=== PATIENT | male | born 1990 | race Caucasian/White ===

== ENCOUNTER 2021-06-20 17:17 | Emergency (ER) | payer BC, SELFPAY ==
[2021-06-20 17:31] VITALS: BP 157/91; PULSE 81; RESP 18; TEMP 36.8; O2SAT 97; BMI 30.4
--- NOTE | 2021-06-20 17:36 | W.ED.DENTAL ---
HPI - Dental/Oral General: Chief complaint: Dental/Oral Stated complaint: Oral infection Time Seen by Provider: 06/20/21 17:36 History of Present Illness: 30-year-old male patient comes in today with complaints of right upper jaw discomfort and facial swelling. Patient has been on clindamycin 300 mg 3 times a day since Saturday evening. Patient reports taken 3 doses. Patient appears nontoxic. Patient appears in mild to moderate pain. Teeth map: 1. Dental pain 2. Gingival swelling Review of Systems General: Reports: 10 or more systems reviewed and unremarkable except in HPI and below ENMT: Reports: dental pain; Denies: throat pain Card: Denies: chest pain Resp: Denies: dyspnea GI: Denies: nausea or vomiting Musc: Denies: neck pain Skin/Breast: Denies: rash Physical Exam Const: COMMON NORMALS: alert HENMT: TEETH & GINGIVA: Yes caries and Yes gingiva abnormal tender THROAT: posterior oropharynx normal Neck/C-Spine: COMMON NORMALS: full ROM Resp: COMMON NORMALS: normal respiratory effort Extremity: COMMON NORMALS: full ROM Neuro: SENSORIUM/ORIENTATION: Yes alert Skin: COMMON NORMALS: no rashes or lesions noted GENERAL SKIN EXAM: no rashes or lesions noted Course Vital Signs: Vital signs: Vital Signs Temperature 98.2 F 06/20/21 17:31 Pulse Rate 81 06/20/21 17:31 Respiratory Rate 18 06/20/21 17:31 Blood Pressure 157/91 06/20/21 17:31 Pulse Oximetry 97 06/20/21 17:31 MDM - Dental/Oral Medical Decision Making 30-year-old male patient comes in today with right upper jaw discomfort. On exam we note a gingival abscess up to the the second molar of the right upper jaw. There is multiple caries in the mouth. Patient also has retained brackets from braces. Patient reports he has not seen a dentist in years and has retained the brackets from his braces from when he was an adolescent. Posterior pharynx is normal. Differential diagnosis dental caries, dental pain, dental abscess. Notable abscess was noted to the right upper second molar. Small fluctuant mass was noted. Recommended patient increase the dose of clindamycin to 450 mg 4 times a day for next 7 days. Prescription was written. Patient was given the small dose of hydrocodone for severe pain. Encourage fluids and rest and follow-up with dentist for definitive care. Patient reported understanding. Discharge Plan Discharge Patient Disposition: Home Clinical Impression: Dental abscess Condition: Stable Prescriptions: New clindamycin HCl 150 mg capsule 450 mg PO QID 7 Days Qty: 84 0RF hydrocodone-acetaminophen 5-325 mg tablet 1 tab PO Q6H PRN (Reason: pain (scale score 7-10)) Qty: 7 0RF Discharge Orders: Discharge ED (Routine); Ordered 06/20/21 Ordered By: Erick Blackman Discharge Diet: Usual diet Discharge Activity: Increase activity as tolerated Patient Instructions: Dental Abscess (ED), Opioid Safety Activity Restrictions/Additional Instructions: Increase antibiotic to 3 capsules 4 times a day while awake. Use acetaminophen and ibuprofen for pain. Use ice packs for further pain relief. Drink plenty of water with medication. Follow-up with dentist for definitive care. Return to ER for difficulty swallowing, nausea vomiting, or new concerns. Coding Level of Care Code ED Tattoo Artist for Yvette Moreno
[2021-06-20] MEDS: HYDROcodone-acetaminophen 7.5-325 mg Tablet 1 TAB PO (17:49)
== END 2021-06-20 17:53 | disposition home or self-care (01) ==
PROVIDERS: Emergency Provider Nurse Practitioner Family
DX: K04.7 Periapical abscess without sinus (principal)
CPT/HCPCS: 99282